=== PATIENT | male | born 1935 | race Two or more races ===

== ENCOUNTER 2020-05-09 12:05 | Outpatient (REF) | payer MEDICARE, OTHER, SELFPAY ==
[2020-05-09 13:37] LABS: Glucose Urine UA NEG (NEG); Leukocyte Esterase Urine NEG (NEG); Nitrite Urine NEG (NEG); Specific Gravity - Urine 1.025 (1.005-1.025); Urine Blood 2+ (NEG); Urine Ketones NEG (NEG); Urine Protein 2+ MG/DL (NEG-TRACE)
[2020-05-09 13:38] LABS: Appearance Urine HAZY; Color Urine DARK YELLOW
[2020-05-09 13:52] LABS: Epith (RTE) Cast 0-2 /LPF; Granular Casts Urine 0-2 /LPF; RBC Urine 0 /HPF (0); Squamous Epithelial Cell Urine 1+ /LPF; WBC Urine 0 /HPF (0-4)
[2020-05-09 14:24] LABS: Creatinine Urine 121.57 mg/dL; Microalbum/Creatinine Ratio Ur 6.5 ug/mg cr
[2020-05-09 14:30] LABS: Anion Gap 16 (12-20); Blood Urea Nitrogen 33 mg/dL (9-16); Calcium 9.1 mg/dL (8.4-10.2); Carbon Dioxide 27 mmol/L (22-29); Chloride 95 mmol/L (96-108); Estimated Glomerular Filt Rate 39; Phosphorus 4.1 mg/dL (2.7-4.5); Potassium 5.8 mmol/L (3.3-5.1); Sodium 132 mmol/L (135-145)
[2020-05-09 15:29] LABS: Renal w Reflex Lab Use Only Order verified
[2020-05-09 15:42] LABS: Glucose Random 260 mg/dL (60-115)
== END 2020-05-09 12:06 | disposition home or self-care (01) ==
LOC: HO.LAB 12:05
PROVIDERS: PCP Internal Medicine; Visit Provider Internal Medicine Nephrology
DX: E11.29 Type 2 diabetes mellitus with other diabetic kidney complication (principal); I10 Essential (primary) hypertension; E87.5 Hyperkalemia
CPT/HCPCS: 36415; 80051; 81001; 82043; 82310; 82550; 82565; 82947; 84100; 84520

== ENCOUNTER → 2020-06-07 13:24 | Outpatient (BNVA) | payer MEDICARE, OTHER, SELFPAY | PROVIDERS: PCP Internal Medicine; Visit Provider Urology | DX: N40.1 Benign prostatic hyperplasia with lower urinary tract symptoms (principal); N13.8 Other obstructive and reflux uropathy; R33.9 Retention of urine, unspecified | CPT/HCPCS: 81002; 99212 ==

== ENCOUNTER 2020-06-09 12:41 | Outpatient (REF) | payer MEDICARE, SELFPAY ==
[2020-06-09 14:00] LABS: Anion Gap 12 (12-20); Blood Urea Nitrogen 22 mg/dL (9-16); Calcium 8.5 mg/dL (8.4-10.2); Carbon Dioxide 29 mmol/L (22-29); Chloride 97 mmol/L (96-108); Estimated Glomerular Filt Rate > 60; Potassium 4.8 mmol/L (3.3-5.1); Sodium 133 mmol/L (135-145)
== END 2020-06-09 12:42 | disposition home or self-care (01) ==
LOC: HO.LAB 12:41
PROVIDERS: PCP Internal Medicine; Visit Provider Internal Medicine Nephrology
DX: E78.5 Hyperlipidemia, unspecified (principal); I10 Essential (primary) hypertension
CPT/HCPCS: 36415; 80051; 82310; 82565; 84520

== ENCOUNTER 2024-11-18 15:18 | Outpatient (AMB) | payer OTHER, SELFPAY ==
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
--- OUTSIDE RECORDS SUMMARY | 2024-11-18 16:11 | XMS_ITS | Clinical Summary ---
Author Organization [facility] Address [address] [place] [id number] Phone Care Team Providers Care Community Service Officer Name Role Phone Manuel Rod Primary Care Provider [phone] Encounters Date Type Department Care Team Description 10/08/2024 Telephone [facility] [address] [facility] [address] [place] [address] Manuel Rod PA from Last 3 Months Social History Tobacco Use Types Packs/Day Years Used Date Smoking Tobacco: Never Assessed Sex and Gender Information Value Date Recorded Sex Assigned at Not on file Legal Sex Male 2:58 AM EST Gender Identity Not on file Sexual Orientation Not on file Plan of Treatment Health Maintenance Due Date Last Done Comments DTaP,Tdap,and Td Vaccines (1 - Tdap) [birth year]02/1954 Pneumococcal Vaccine: 50+ Years (1 of 2 - PCV) 09/02/1954 RSV Immunization Adult Patients (1 - 1-dose 75+ series) 09/02/2011 Zoster Vaccines (2 of 2) 06/30/2020 05/05/2020 Falls Risk Assessment 03/04/2022 Medicare Annual Wellness Visit 03/04/2022 Social Influencers of Health Screening 03/04/2022 COVID-19 Vaccine (2023-2 5 season) 2023 05/25/2021, 06/23/2020, 05/25/2020 Depression Screening 04/01/2024 Influenza Vaccine (#1) 2024 Cholesterol Screening (Lipid Panel) 04/23/2029 04/23/2024 HIB Vaccines Aged Out No longer eligi ble based on patient's age to complete this topic HPV Vaccines Aged Out No longer eligi ble based on patient's age to complete this topic Hepatitis A Vaccines Aged Out No long er eligible based on patient's age to complete this topic Hepatitis B Vaccines Aged Out No long er eligible based on patient's age to complete this topic IPV Vaccines Aged Out No longer eligi ble based on patient's age to complete this topic MMR Vaccines Aged Out No longer eligi ble based on patient's age to complete this topic Meningococcal ACWY Vaccine Aged Out N o longer eligible based on patient's age to complete this topic Meningococcal B Vaccine Aged Out No l onger eligible based on patient's age to complete this topic RSV Immunization Patients Under 20 months Aged Out No longer eligible b ased on patient's age to complete this topic Varicella Vaccines Aged Out No longer eligible based on patient's age to complete this topic Procedures Procedure Name Priority Date/Time Associated Diagnosis Comments LIPID PANEL WITH REFLEX TO DIRECT LDL Routine 04/23/2024 10:30 AM EST Addisons anemia Mixed hyperlipidemia Diabetes mellitus ([facility] V24, [facility] V28) Enlargement (benign) of prostate from Last 3 Months or Most Recently Relevant to Health Maintenance Results * Lipid panel with reflex to direct LDL (04/23/2024 10:30 AM EST) Cholesterol 145 0 - 200 mg/dL LAB CHEMISTRY METHOD 04/23/2024 2:19 PM [facility] Triglycerides 69 0 - 150 mg/dL LAB CHEMISTRY METHOD 04/23/2024 2:19 PM [facility] HDL 83 >=40 mg/dL LAB CHEMISTRY METHOD 04/23/2024 2:19 PM [facility] LDL Calculated 48 0 - 100 mg/dL LAB CHEMISTRY METHOD 04/23/2024 2:19 PM [facility] VLDL Cholesterol Lokesh 13.8 mg/dL LAB CHEMISTRY METHOD 04/23/2024 2:19 PM [facility] Non HDL Chol. (LDL+VLDL) 62 <145 mg/dL LAB CHEMISTRY METHOD 04/23/2024 2:19 PM [facility] Chol/HDL Ratio 1.7 0.0 - 4.4 LAB CHEMISTRY METHOD 04/23/2024 2:19 PM [facility] Blood Venous blood specimen / Unknown Venipuncture / Unknown 04/23/2024 10:30 AM EST 04/23/2024 12:50 PM EST Manuel NGUYEN LAB BLOOD ORDERABLES Final Res ult [facility] [address] [place] [address], from Last 3 Months or Most Recently Relevant to Health Maintenance Insurance MEDICAID - [place] [facility] [employer] Care Teams Community Service Officer Relationship Specialty Start Date End Date Manuel Rod PA [address] [place] [phone] PCP - General Primary Care 04/23/24
== END 2024-11-18 15:47 | disposition home or self-care (01) ==
LOC: HO.HSM 15:19
PROVIDERS: PCP Internal Medicine; Referring Provider Internal Medicine; Visit Provider Registered Nurse
DX: G40.909 Epilepsy, unspecified, not intractable, without status epilepticus (principal); I65.21 Occlusion and stenosis of right carotid artery
CPT/HCPCS: 99213